=== PATIENT | female | born 1955 | race Caucasian/White ===

== ENCOUNTER 2017-10-26 17:42 | Emergency (ER) | payer SELFPAY ==
[2017-10-26] MEDS ORDERED: Bacitracin Oint 1 GM U/D Packet TOP ONE (18:23)
--- NOTE | 2017-10-26 19:11 | EDM.PDOC ---
ED HPI GENERAL MEDICAL PROBLEM - General Chief Complaint: ENT Problem Stated Complaint: [facility] Time Seen by Provider: 10/26/17 18:17 Source of Information: Reports: Patient, RN Notes Reviewed History Limitations: Reports: Other (Very limited communication, reluctant to engage in conversation) - History of Present Illness INITIAL COMMENTS - FREE TEXT/NARRATIVE: 18.15 sent from the clinic for evaluation, concern was about the patient's demeanor, apparently provider was concerned about her staring, affect. Nose bleed, uncertain side, there several hours, seen at the clinic for 30 p.m. and transferred here by ambulance. Bleeding had stopped by the time she arrived. 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 HEENT: Reports: Nosebleed ED EXAM, ENT - Physical Exam Exam: See Below Exam Limited By: Other (Patient sparse in her conversation) General Appearance: Alert, No Apparent Distress, Other (Elevated blood pressure and mild elevation pulse) Eye Exam: Bilateral Eye: Normal Inspection Ears: Normal External Exam, Hearing Grossly Normal Nose: Other (Fresh clots in the right nares, less in the left side, no active bleeding). No: Nasal Discharge, Nasal Swelling, Active Bleeding Mouth/Throat: Normal Inspection, Other (No posterior bleeding) Head: Atraumatic Neck: Normal Inspection. No: Lymphadenopathy (R), Lymphadenopathy (L) Respiratory/Chest: No Respiratory Distress, No Accessory Muscle Use Cardiovascular: Normal Peripheral Pulses, Regular Rate, Rhythm Neurological: Alert, Oriented Skin: Warm, Dry, Normal Color, No Rash Course - Vital Signs Last Recorded V/S: Last Vital Signs Temp 36.4 C 10/26/17 17:54 Pulse 105 H 10/26/17 17:54 Resp 16 10/26/17 17:54 BP 186/83 H 10/26/17 17:54 Pulse Ox 96 10/26/17 17:54 - Orders/Labs/Meds Labs: Laboratory Tests 10/26/17 Range/Units 18:32 WBC 12.5 H (4.5-11.0) K/uL RBC 5.38 (3.30-5.50) M/uL Hgb 15.4 H (12.0-15.0) g/dL Hct 46.0 (36.0-48.0) % MCV 86 (80-98) fL MCH 29 (27-31) pg MCHC 34 (32-36) % Plt Count 272 (150-400) K/uL Meds: Medications Discontinued Medications Generic Name Dose Route Start Last Admin Trade Name Freq PRN Reason Stop Dose Admin Bacitracin 2 dose 10/26/17 18:23 10/26/17 18:30 Bacitracin Oint 1 Gm TOP 10/26/17 18:24 2 dose ONETIME ONE Administration - Re-Assessments/Exams Free Text/Narrative Re-Assessment/Exam: 10/26/17 19:09 62-year-old female with nosebleed unspecified laterality, transferred from clinic because of concerns of her behavior Bleeding has stopped Bacitracin applied to both nares CBC shows mild elevation of hemoglobin Son reports that her behavior is normal for her No further bleeding Discharge home, return if needed Departure - Departure Time of Disposition: 19:10 Disposition: Home, Self-Care 01 Condition: Good Clinical Impression: Epistaxis - Discharge Information Instructions: Nosebleed Referrals: PCP,None [Primary Care Provider] - Forms: ED Department Discharge
== END 2017-10-26 19:31 | disposition home or self-care (01) ==
LOC: JP.ED 17:42
DX: R04.0 Epistaxis (principal); Z91.018 Allergy to other foods
CPT/HCPCS: 36415; 85027; 99283; 99284

== ENCOUNTER 2017-10-26 19:36 | Emergency (ER) | payer SELFPAY ==
[2017-10-26] MEDS ORDERED: Bacitracin Oint 1 GM U/D Packet ONE (19:39)
--- NOTE | 2017-10-26 20:39 | EDM.PDOC ---
ED HPI GENERAL MEDICAL PROBLEM - General Chief Complaint: ENT Problem Stated Complaint: NOSE BLEED Time Seen by Provider: 10/26/17 19:54 Source of Information: Reports: Patient History Limitations: Reports: No Limitations - History of Present Illness INITIAL COMMENTS - FREE TEXT/NARRATIVE: 20.00 Here with her son Chief complaint: Right-sided nosebleed History of present illness: 62-year-old female who started developing right- sided nosebleed about 3 PM today. Was seen at the clinic at 4:30 PM and transferred to emergency because of concerns about her behavior. Was seen in emergency and discharged about half hour ago, as there is no further bleeding, her blood count was normal. Bacitracin had been applied to both nares, there was more blood clot in the right side so was suspected that the right side was the source. Within half an hour of discharge she was in the car she had blood dripping out of the right nose so return to emergency. 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 HEENT: Reports: Nosebleed (Right-sided) ED EXAM, ENT - Physical Exam Exam: See Below Exam Limited By: No Limitations General Appearance: Alert, Anxious, Other (Mild tachycardia and mild high blood pressure, no difficulty speaking or breathing) Eye Exam: Bilateral Eye: Normal Inspection Ears: Normal External Exam Nose: Dried Blood (Right nares). No: Active Bleeding Mouth/Throat: Normal Inspection Respiratory/Chest: No Respiratory Distress Cardiovascular: Normal Peripheral Pulses, Regular Rate, Rhythm, Tachycardia Neurological: Alert Psychiatric: Normal Affect (At this visit she is a little more interactive, smiling and laughing) Skin: Warm, Dry, Intact ED ENT PROCEDURES - Epistaxis Procedure Indication: Epistaxis Recent anticoagulants/antiplatlets: No Uncontrolled HTN: No Recent septal/nasal surgery: No Site of bleeding: Right Nare Clearing of clots: Other Ice pack to area: No Anterior Packing: Nasal Tampon (Medium-sized Rhino Rocket, inserted with bacitracin ointment) Complications: No Complication Description: Observed over 20 minutes with no further bleeding Course - Vital Signs Last Recorded V/S: Last Vital Signs Temp 36.5 C 10/26/17 19:57 Pulse 116 H 10/26/17 19:57 Resp 18 10/26/17 19:57 BP 156/86 H 10/26/17 19:57 Pulse Ox 95 10/26/17 19:57 - Orders/Labs/Meds Meds: Medications Discontinued Medications Generic Name Dose Route Start Last Admin Trade Name Gilmer PRN Reason Stop Dose Admin Bacitracin Confirm 10/26/17 19:39 Bacitracin Oint 1 Gm Administered 10/26/17 19:40 Dose 2 dose .ROUTE .STK-MED ONE - Re-Assessments/Exams Free Text/Narrative Re-Assessment/Exam: 10/26/17 20:38 62-year-old female with recurrence of right-sided nosebleed within half hour after discharge from emergency Treated with nasal sponge Follow-up in 2 days for sponge removal Departure - Departure Time of Disposition: 20:38 Disposition: Home, Self-Care 01 Condition: Good Clinical Impression: Right-sided nosebleed - Discharge Information Instructions: Nosebleed, [id number] Referrals: PCP,None [Primary Care Provider] - Forms: ED Department Discharge Additional Instructions: Call the clinic to arrange appointment to have the sponge removed from your nose in 2 days
== END 2017-10-26 20:56 | disposition home or self-care (01) ==
LOC: JP.ED 19:36
DX: R04.0 Epistaxis (principal); Z91.018 Allergy to other foods
CPT/HCPCS: 30901; 99283-25

== ENCOUNTER 2017-10-27 21:29 | Emergency (ER) | payer SELFPAY ==
[2017-10-27] MEDS ORDERED: Oxymetazoline 0.05% Nasal Spray 15 ML Bottle NAS ONE (21:40)
--- NOTE | 2017-10-27 21:44 | EDM.PDOC ---
ED HPI GENERAL MEDICAL PROBLEM - General Chief Complaint: ENT Problem Stated Complaint: BLOODY NOSE Time Seen by Provider: 10/27/17 21:41 Source of Information: Reports: Patient History Limitations: Reports: No Limitations - History of Present Illness INITIAL COMMENTS - FREE TEXT/NARRATIVE: pt had a cotton plug placed in her rt nare last nite. The bleeding has never really stopped. She has oozed all day. She has had some bleeding on and off for the past 2 days. Onset: Gradual Duration: Hour(s): Location: Reports: Other ( nose bleed. ) Associated Symptoms: Denies: Other ( Persistent bleeding fromhe rt nare. 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 ) Respiratory: Reports: No Symptoms Cardiovascular: Reports: No Symptoms Endocrine: Reports: No Symptoms GI/Abdominal: Reports: No Symptoms : Reports: No Symptoms Musculoskeletal: Reports: No Symptoms Skin: Reports: No Symptoms ED EXAM, ENT - Physical Exam Exam: See Below Text/Narrative:: pt was here last nite and a cotton packing was placed , She has oozed all day. She states that she had some bleeding from the left nostril. While I was examining her she vomted a large amount of clots and fresh looking blood. Exam Limited By: Other (pt seemes to be having a difficult time comorehening things.) General Appearance: Alert, Moderate Distress Ears: Normal TMs Nose: Other (pt had some blood in the left nostril which probably crossed over. She was actively bleeding from the rt notril and had blood going down the back pof her throat. The cotton packing was pulled and she was asked to blow her nose which she did not seem to understand. ) Mouth/Throat: Other ( blood going down the back of the throat. ) Head: Atraumatic Neck: Normal Inspection Respiratory/Chest: No Respiratory Distress Cardiovascular: Regular Rate, Rhythm GI/Abdominal: Soft, Non-Tender Neurological: Alert, Oriented, Other ( she has trouble understanding and following directions. She does not always answer the questions when she is ask. She is not different than usual according to her son. ) Psychiatric: Flat Affect, Other ( She has trouble answering questions. ) Course - Vital Signs Last Recorded V/S: Last Vital Signs Temp 36.7 C 10/27/17 21:35 Pulse 130 H 10/27/17 21:35 Resp 16 10/27/17 21:35 BP 155/93 H 10/27/17 21:35 Pulse Ox 97 10/27/17 21:35 - Orders/Labs/Meds Labs: Laboratory Tests 10/27/17 10/27/17 Range/Units 22:12 22:12 WBC 12.4 H (4.5-11.0) K/uL RBC 4.80 (3.30-5.50) M/uL Hgb 13.8 (12.0-15.0) g/dL Hct 41.4 (36.0-48.0) % MCV 86 (80-98) fL MCH 29 (27-31) pg MCHC 33 (32-36) % Plt Count 295 (150-400) K/uL Neut % (Auto) 64 (36-66) % Lymph % (Auto) 24 (24-44) % Stanley % (Auto) 11 H (2-6) % Eos % (Auto) 1 L (2-4) % Baso % (Auto) 0 (0-1) % APTT 22.2 L (27.0-36.0) sec Meds: Medications Discontinued Medications Generic Name Dose Route Start Last Admin Trade Name Freq PRN Reason Stop Dose Admin Oxymetazoline HCl 1 ml 10/27/17 21:40 10/27/17 21:48 Afrin Original 0.05% Nasal [place] RISSA 10/27/17 21:41 1 ml ONETIME ONE Administration - Re-Assessments/Exams Free Text/Narrative Re-Assessment/Exam: 10/27/17 22:27 A packing was pulled out that was not a rhino rocket but was just a cotton packing with a string. She did vomit a large amount of clots. A 7.5 rhino rocket was placed and about 12 cc of air was placed and the bleeding seemed to stop. The rhino rocket was soaked in afrin prior to insertion. 10/27/17 22:39 pt had a normal hg and normal platlets. Departure - Departure Time of Disposition: 22:46 Disposition: Home, Self-Care 01 Condition: Fair Clinical Impression: Nasal bleeding - Discharge Information Referrals: PCP,None [Primary Care Provider] - Forms: ED Department Discharge Care Plan Goals: leave the rhino rocket in for the next 2 days, removal will be at the ER on Sat pm. After removal of the rocket she should use afrin four tines daily in the rt nostril. This should be used for the next 3 days, cool mist huimidfier at the bedside. The aftrin spray willbe sent home with her today.
== END 2017-10-27 22:54 | disposition home or self-care (01) ==
LOC: JP.ED 21:29
DX: R04.0 Epistaxis (principal); Z91.018 Allergy to other foods
CPT/HCPCS: 30903; 36415; 85025; 85730; 99284; A9270

== ENCOUNTER 2017-10-29 14:57 | Emergency (ER) | payer SELFPAY ==
--- NOTE | 2017-10-29 16:23 | EDM.PDOC ---
ED HPI GENERAL MEDICAL PROBLEM - General Chief Complaint: ENT Problem Stated Complaint: NOSE BLEED Time Seen by Provider: 10/29/17 15:40 Source of Information: Reports: Patient, Family History Limitations: Reports: No Limitations - History of Present Illness INITIAL COMMENTS - FREE TEXT/NARRATIVE: 62-year-old female arrives for removing of a rapid Rhino in the right nares. She still has some bleeding around the packing. 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: Musculoskeletal History: Reports: Fracture - Infectious Disease History Infectious Disease History: Reports: Chicken Pox - Past Surgical History Female Surgical History: Reports: Tubal Ligation Social & Family History - Tobacco Use Smoking Status *Q: Never Smoker - Caffeine Use Caffeine Use: Reports: Soda - Recreational Drug Use Recreational Drug Use: No ED ROS ENT - Review of Systems Review Of Systems: See Below Constitutional: Denies: Fever, Chills Respiratory: Denies: Shortness of Breath GI/Abdominal: Denies: Nausea, Vomiting Neurological: Reports: Weakness (Feels very tired and weak) ED EXAM, ENT - Physical Exam Exam: See Below Exam Limited By: No Limitations General Appearance: Alert, No Apparent Distress, Anxious Nose: Other (There is a rapid Rhino in the right nares which was removed without complications. Patient had no active bleeding after removal) Respiratory/Chest: No Respiratory Distress Course - Vital Signs Last Recorded V/S: Last Vital Signs Temp 100.0 F 10/29/17 15:27 Pulse 128 H 10/29/17 15:27 Resp 18 10/29/17 15:27 BP 131/78 10/29/17 15:27 Pulse Ox 95 10/29/17 15:27 - Orders/Labs/Meds Labs: Laboratory Tests 10/29/17 Range/Units 15:39 WBC 17.0 H (4.5-11.0) K/uL RBC 4.61 (3.30-5.50) M/uL Hgb 13.3 (12.0-15.0) g/dL Hct 39.8 (36.0-48.0) % MCV 86 (80-98) fL MCH 29 (27-31) pg MCHC 33 (32-36) % Plt Count 313 (150-400) K/uL Neut % (Auto) 73 H (36-66) % Lymph % (Auto) 17 L (24-44) % [place] % (Auto) 9 H (2-6) % Eos % (Auto) 0 L (2-4) % Baso % (Auto) 0 (0-1) % - Re-Assessments/Exams Free Text/Narrative Re-Assessment/Exam: 10/29/17 16:22 Because of the fatigue and hemoglobin was repeated and is normal. No active bleeding over the course of an hour in the emergency room. Patient was reassured , will apply external pressure if bleeding recurs and return if she can't get it under control. Departure - Departure Time of Disposition: 16:40 Disposition: Home, Self-Care 01 Condition: Good Clinical Impression: Epistaxis - Discharge Information Instructions: Nosebleed, [id number] Referrals: PCP,None [Primary Care Provider] - Forms: ED Department Discharge Care Plan Goals: Keep nose clean but avoid irritation or rubbing of the nose. Use external pressure if bleeding recurs and return if you cannot get bleeding under control.
== END 2017-10-29 16:40 | disposition home or self-care (01) ==
LOC: JP.ED 14:57
DX: R04.0 Epistaxis (principal); Z91.018 Allergy to other foods
CPT/HCPCS: 36415; 85025; 99283; 99284